=== PATIENT | male | born 1980 | race Caucasian/White ===

== ENCOUNTER → 2016-11-06 | Outpatient (CLI) | payer OTHER ==
--- NOTE | 2016-11-06 10:16 | DX ---
Cervical spine, 5 views 11/06/2016 History: Chronic neck pain. Comparison examination: February 16, 2013. Findings: Intervertebral disk height loss at C5-C6 has progressed slightly in the interval. There is also mild disk height loss at C6-C7 which appears unchanged. Cervical alignment is normal, and no fra cture is identified. The left C3-C4 neural foramina is narrowed secondary to bony hyperostosis, incre ased from prior exam. Impression: Features of degenerative disk disease at C5-C6 and C6-C7, slightly increased from prior s tudy. Progressive left neural foraminal stenosis at C3-C4.
== END ==
LOC: BMCIMAGING 08:57
PROVIDERS: ATTEND Physician Assistant
DX: M54.2 Cervicalgia (principal); M85.88 Other specified disorders of bone density and structure, other site

== ENCOUNTER → 2016-12-26 | Outpatient (CLI) | payer OTHER | LOC: FIMAGING 06:58 | PROVIDERS: ATTEND Physician Assistant | DX: M50.20 Other cervical disc displacement, unspecified cervical region (principal); M25.78 Osteophyte, vertebrae; M99.71 Connective tissue and disc stenosis of intervertebral foramina of cervical region; S43.492A Other sprain of left shoulder joint, initial encounter; S43.432A Superior glenoid labrum lesion of left shoulder, initial encounter ==

== ENCOUNTER → 2017-08-25 | Outpatient (CLI) | payer OTHER | LOC: BMCIMAGING 09:09 | PROVIDERS: ATTEND Physician Assistant | DX: M25.512 Pain in left shoulder (principal) ==